=== PATIENT | male | born 1970 | race Caucasian/White ===

== ENCOUNTER 2021-01-23 17:32 | Emergency (ER) | payer SELFPAY ==
--- NOTE | ~2021-01-23 | XR_ITS ---
EXAMINATION: XR finger 5th RT min 2V EXAM DATE: 01/23/2021 17:59 INDICATION: Initial encounter following injury, with pain of the right 5th finger. Fell. TECHNIQUE: Right 5th finger frontal, lateral and oblique projections obtained and reviewed. There is no prior study for comparison. FINDINGS: There is acute oblique fracture through the right 5th proximal phalanx with about 50% shaf t width volar radial displacement and mild posterior angulation. There may be some amount of rotation as well. There is overlying soft tissue swelling. IMPRESSION: Right 5th proximal phalangeal shaft fracture, angulation, displacement, possible rotation . Reviewed, dictated and finalized at location A. GRATION MANAGER IMPRESSION: Right 5th proximal phalangeal shaft fracture, angulation, displacem ent, possible rotation.
--- NOTE | ~2021-01-23 | XR_ITS ---
EXAMINATION: XR finger 5th RT min 2V EXAM DATE: 01/23/2021 18:27 INDICATION: Post reduction. TECHNIQUE: Right 5th finger frontal, lateral and oblique projections obtained and reviewed. Comparis on is made to prior examination from earlier same date. FINDINGS: Right 5th proximal phalangeal shaft fracture has mild improvement in displacement and angul ation previously described. IMPRESSION: Partially reduced right 5th proximal phalangeal shaft fracture. Reviewed, dictated and finalized at location A. ONNEL PLACEMENT SPECIALIST
--- NOTE | 2021-01-23 17:40 | ED.UPPEXIN ---
HPI - Extremity Injury (Upper) General Chief Complaint: Extremity Injury, Upper Stated Complaint: Finger Injury/Right Time Seen by Provider: 01/23/21 17:40 Source: patient and RN notes reviewed History of Present Illness HPI narrative: Patient is a 50-year-old male who presents the urgent care with complaints of injured right pinky finger. Patient states that he fell approximately 2 feet off a step while attempting to hang a large [employer]iss[employer] ornament outside. Patient states that he hit her pinky finger on the ladder. Denies of any other injuries from the incident. Patient does state he is supposed to be taking blood pressure medications and does have an appointment within the next week with a primary care doctor. No other acute complaints. Patient has not done anything [id number] for the pain. No acute distress noted. Patient aware of the plan of care. Some parts of this dictation were generated by voice recognition software and may contain typographical and/or grammatical inaccuracies. Related Data Home Medications Medication Instructions Recorded Confirmed No Home Medications 01/23/21 01/23/21 Allergies Allergy/AdvReac Type Severity Reaction Status Date / Time No Known Allergies Allergy Verified 01/23/21 17:52 Review of Systems Review of Systems: CONSTITUTIONAL: Denies fever, chills, or sweats. EYES: Denies visual changes, redness, or discharge. ENT: Denies rhinorrhea, congestion, sore throat, or otalgia. CARDIOVASCULAR: Denies chest pain, palpitations, or edema. RESPIRATORY: Denies cough or dyspnea. GASTROINTESTINAL: Denies abdominal pain, nausea, vomiting, or diarrhea. GENITOURINARY: Denies dysuria or hematuria. SKIN: Denies rash or itching. MUSCULOSKELETAL: Reports of pain and injury to right pinky finger NEUROLOGIC: Denies headache, numbness, or weakness. All other systems reviewed are negative, except as documented in HPI. PMFSH Comments At the time of my signature, I reviewed and agree with the nursing past medical, surgical, social, and family history. There is no relevant family history pertinent to the patient complaint. Exam Narrative: GENERAL: This is a well-nourished, well-developed patient, in no apparent distress. HEAD: normocephalic, atraumatic. EYES: PERRL. Sclera clear/white. Vision is grossly intact. EARS: External ears normal NOSE: External nose normal with no obvious nasal discharge, nares without redness, no rhinorrhea. THROAT: Mucous membranes moist NECK: Neck supple CARDIOVASCULAR: Regular rate and rhythm without murmurs, gallops, or rubs. RESPIRATORY: Clear to auscultation. Breath sounds equal bilaterally. No wheezes, rales, or rhonchi. SKIN: warm, intact with no suspicious lesions or rash, good texture and turgor. NEURO: awake, alert, and oriented to person, place and time. There were no obvious focal neurologic abnormalities. EXTREMITIES: Obvious deformity noted to right pinky finger. Positive strong right radial pulse with capillary refill less than 2 seconds. Course Vital Signs Vital signs: Vital Signs Temperature 98.8 F 01/23/21 17:42 Pulse Rate 85 01/23/21 17:42 Respiratory Rate 16 01/23/21 17:42 Blood Pressure 188/100 H 01/23/21 17:42 Pulse Oximetry 100 01/23/21 17:42 Temperature 98.8 F 01/23/21 17:42 Pulse Rate 85 01/23/21 17:42 Respiratory Rate 16 01/23/21 17:42 Blood Pressure 188/100 H 01/23/21 17:42 Pulse Oximetry 100 01/23/21 17:42 Reviewed-patient is informed that they may have pre-hypertension or hypertension based on a blood pressure reading in the department. I recommend the patient call the primary care provider listed on their discharge instructions or a physician of their choice this week to arrange follow-up for further evaluation of possible pre-hypertension or hypertension. Procedures Orthopedic Fracture Reduction Fracture #1: Side: right Fracture Reduction Location: finger (Fifth digit) Analg
[2021-01-23 17:42] VITALS: BP 188/100; PULSE 85; RESP 16; TEMP 37.1; O2SAT 100
== END 2021-01-23 18:45 | disposition home or self-care (01) ==
PROVIDERS: Emergency Provider Nurse Practitioner Family
DX: S62.616A Displaced fracture of proximal phalanx of right little finger, initial encounter for closed fracture (principal); W22.8XXA Striking against or struck by other objects, initial encounter; E78.00 Pure hypercholesterolemia, unspecified; I10 Essential (primary) hypertension
CPT/HCPCS: 26725; 73140; 99205; G0463